=== PATIENT | male | born 1930 | race Caucasian/White ===

== ENCOUNTER 2019-03-27 15:21 | Observation (INO) | payer OTHER ==
[~2019-03-27] VITALS: Ht 167.6 cm; Wt 61.0 kg
[2019-03-27] MEDS: CLINDAMYCIN 600MG / 50ML 50 ML IV SCH
[2019-03-27] MEDS ORDERED: TETANUS/DIPHTHERIA TOX ADULT 0.5 ML SYR IM ONE (16:45)
--- NOTE | 2019-03-27 17:42 | Diagnostic Imaging Report ---
HAND 3+ VIEWS RIGHT - 3 views HISTORY: Pain COMPARISON: None available. FINDINGS: Bones: No acute displaced fracture. Osseous alignment is within normal limits. Joints: Advanced degenerative changes and chondrocalcinosis involving the joints of the fingers and wrist, worst at the first carpometacarpal joint where there is joint space obliteration with remodeling. Soft tissues: Punctate metallic densities along the dorsal lateral aspect of the fifth metacarpal head with associated soft tissue calcifications. IMPRESSION: 1. No acute fracture. 2. Advanced degenerative changes in the right hand and wrist, worst at the first carpometacarpal joint, there is likely a component of CPPD arthropathy. Signed by: Mynor Marie MD on 03/27/2019 5:39 PM
--- NOTE | 2019-03-27 17:49 | Diagnostic Imaging Report ---
HIP RIGHT 2-3 VW (+/- PELVIS) - 3 views HISTORY: Pain COMPARISON: None available. FINDINGS: Bones: No acute displaced fracture. Osseous alignment is within normal limits. Joints: Disc height loss and osteophytes with left convex curvature of the included lower lumbar spine. Hip and sacroiliac joint spaces are preserved with mild osteophytes. Chondrocalcinosis. Soft tissues: Vascular calcifications. IMPRESSION: No acute radiographic abnormality. Advanced degenerative changes in the lower lumbar spine. Mild degenerative changes in the sacroiliac joints and hips. Signed by: Mynor Marie MD on 03/27/2019 5:46 PM
[2019-03-27] MEDS ORDERED: ONDANSETRON HCL INJ 2MG/ML 2ML 2 MG/ML VIAL IV PRN (18:15)
--- NOTE | 2019-03-27 18:30 | NUR ---
DR QUINONES AT PT BEDSIDE
[2019-03-27] MEDS: SODIUM CHLORIDE 0.9% 1000ML 1,000 ML IV SCH (19:00)
--- OUTSIDE RECORDS SUMMARY | 2019-03-27 19:01 | XMS REPORT ---
Author [facility] Address Unknown Phone Unavailable Care Team Providers Care Money Room Supervisor Name Role Phone Paul MATOS Unavailable Unavailable Problems This patient has no known problems. Allergies, Adverse Reactions, Alerts This patient has no known allergies or adverse reactions. Medications This patient has no known medications. Results Test Description Test Time Test Comments Text Results Atomic Results Result Comments HIP RIGHT 2-3 VW (+/- PELVIS) 2019-03-27 17:39:00 [place] [address] Patient Name: GLENIS RAYA MR #: [id number] : 1930 Age/Sex: 88/M Req #: [id number] Adm Physician: Ordered by: JULIETA RAMIREZ SYSTEM ADMINISTRATION MANAGER Report #: [id number] Location: ER Room/Bed: Procedure: [id number] DX/HIP RIGHT 2-3 VW (+/- PELVIS) Exam Date: Exam Time: REPORT STATUS: Signed HIP RIGHT 2-3 VW (+/- PELVIS) - 3 views HISTORY: Pain COMPARISON: None available. FINDINGS: Bones: No acute displaced fracture. Osseous alignment is within normal limits. Joints: Disc height loss and osteophytes with left convex curvature of the included lower lumbar spine. Hip and sacroiliac joint spaces are preserved with mild osteophytes. Chondrocalcinosis. Soft tissues: Vascular calcifications. IMPRESSION: No acute radiographic abnormality. Advanced degenerative changes in the lower lumbar spine. Mild degenerative changes in the sacroiliac joints and hips. Signed by: Mynor Marie MD on 03/27/2019 5:46 PM Dictated By: MYNOR MARIE DO 45 Transcribed By: CELIA on 03/27/191745 COPY TO: JULIETA RAMIREZ NP HAND 3+ VIEWS RIGHT 2019-03-27 17:33:00 [place] [address] Patient Name: GLENIS RAYA MR #: [id number] : 1930 Age/Sex: 88/M Req #: [id number] Adm Physician: Ordered by: JULIETA RAMIREZ NP Report #: [id number] Location: ER Room/Bed: Procedure: [id number] DX/HAND 3+ VIEWS RIGHT Exam Date: 03/27/19 Exam Time: 1700 REPORT STATUS: Signed HAND 3+ VIEWS RIGHT - 3 views HISTORY: Pain COMPARISON: None available. FINDINGS: Bones: No acute displaced fracture. Osseous alignment is within normal limits. Joints: Advanced degenerative changes and chondrocalcinosis involving the joints of the fingers and wrist, worst at the first carpometacarpal joint where there is joint space obliteration with remodeling. Soft tissues: Punctate metallic densities along the dorsal lateral aspect of the fifth metacarpal head with associated soft tissue calcifications. IMPRESSION: 1. No acute fracture. 2. Advanced degenerative changes in the right hand and wrist, worst at the first carpometacarpal joint, there is likely a component of CPPD arthropathy. Signed by: Mynor Marie MD on 03/27/2019 5:39 PM Dictated By: MYNOR MARIE DO 1739 Transcribed By: CELIA on 03/27/19 173 COPY TO: JULIETA RAMIREZ NP
[2019-03-27 20:21] LABS: BASOPHILS # (AUTO) 0.1 (0.0-0.1); BASOPHILS % 0.5 % (0.0-1.0); EOSINOPHILS % 0.1 % (0.0-6.0); HEMATOCRIT 44.9 % (38.2-49.6); HEMOGLOBIN 15.9 g/dL (14.0-18.0); LYMPHOCYTES # (AUTO) 1.2 (1.0-3.2); MEAN CORPUSCULAR HEMOGLOBIN 34.4 pg (28-32); MEAN CORPUSCULAR HGB CONC 35.4 g/dL (31-35); MEAN CORPUSCULAR VOLUME 97.2 fL (81-99); MONOCYTES # (AUTO) 0.9 (0.2-0.8); MONOCYTES % 8.3 % (4.4-11.3); NEUTROPHILS # (AUTO) 8.6 (2.1-6.9); NEUTROPHILS % 79.7 % (38.7-80.0); PLATELET COUNT 158 x10e3/uL (140-360); RED BLOOD COUNT 4.62 x10e6/uL (4.3-5.7)
[2019-03-27 20:27] LABS: INR 0.97; PROTHROMBIN TIME 13.4 seconds (11.9-14.5)
[2019-03-27 20:37] LABS: ALANINE AMINOTRANSFERASE 22 IU/L (0-55); ALBUMIN 3.7 g/dL (3.5-5.0); ALBUMIN/GLOBULIN RATIO 1.2 (0.8-2.0); ALKALINE PHOSPHATASE 86 IU/L (40-150); ANION GAP 13.1 mmol/L (8-16); BLOOD UREA NITROGEN 24 mg/dL (7-26); BUN/CREATININE RATIO 26 (6-25); CALCIUM 9.5 mg/dL (8.4-10.2); CARBON DIOXIDE 26 mmol/L (22-29); CHLORIDE 101 mmol/L (98-107); CREATININE, SERUM 0.92 mg/dL (0.72-1.25); EST GLOMERULAR FILTRATION RATE > 60 ML/MIN (60-); GLUCOSE 110 mg/dL (74-118); POTASSIUM 4.1 mmol/L (3.5-5.1); SODIUM 136 mmol/L (136-145)
[2019-03-27] MEDS: MORPHINE SULFATE INJ 4 MG/ML INJ 1ML IV PRN (21:02)
--- NOTE | 2019-03-27 22:09 | NUR ---
Patient arrived via stretcher from ER with family at side. Oriented to environment and calling. Instructed to call for on the onset of pain or SOB. Call light within reach. Will continue to monitor.
[2019-03-27] MEDS ORDERED: SYNTHROID125 MCG PO (22:31)
[2019-03-27 22:34] VITALS: BP 150/70
[2019-03-28] VITALS: BP 148/66
[2019-03-28] MEDS: MORPHINE SULFATE INJ 4 MG/ML INJ 1ML IV PRN (01:55)
[2019-03-28] MEDS: SODIUM CHLORIDE 0.9% 1000ML 1,000 ML IV SCH (02:08)
[2019-03-28 04:00] VITALS: BP 129/61
--- NOTE | 2019-03-28 06:00 | NUR ---
Resting in bed with rt arm/hand elevated on pillow. Call light within reach. No issues or concerns.Will continue to monitor.
[2019-03-28] MEDS: CLINDAMYCIN 600MG / 50ML 50 ML IV SCH ×2 (06:01)
--- NOTE | 2019-03-28 06:44 | Diagnostic Imaging Report ---
EXAMINATION: CHEST SINGLE (PORTABLE) COMPARISON: None INDICATION: ^pre-op for surgery ^Y DISCUSSION: Frontal view of the chest obtained at 0547 hours. HEART AND MEDIASTINUM: The cardiomediastinal silhouette is unremarkable. LINES: None. LUNGS: The lungs are well inflated and clear. No pneumonia or pulmonary edema. PLEURA: No pleural effusion or pneumothorax. BONES AND SOFT TISSUES: Severe degenerative changes of the right shoulder. Mild changes of the left shoulder. The soft tissues are normal. IMPRESSION: No acute cardiopulmonary disease. Signed by: Dr. Bonifacio Hansen MD on 03/28/2019 6:41 AM
[2019-03-28 07:45] VITALS: BP 139/79
[2019-03-28] MEDS ORDERED: MUPIROCIN 2% OINT 22 GM TUBE ONE (08:03)
[2019-03-28] MEDS ORDERED: BUPIVACAINE HCL 0.5% INJ 30 ML VIAL INJ ONE (08:03)
[2019-03-28] MEDS ORDERED: BACITRACIN 50,000 UNIT VIAL ONE (08:03)
[2019-03-28 08:25] VITALS: BP 139/79
[2019-03-28] MEDS ORDERED: LIDOCAINE 1% W/EPINEPHRINE 20 ML VIAL ONE (08:37)
[2019-03-28] MEDS ORDERED: MUPIROCIN 2% OINT 22 GM TUBE TOP SCH (09:00)
--- NOTE | 2019-03-28 10:40 | NUR ---
patient alert and oriented, with family at bedside. call callejas within reach and bed in lowest position.
[2019-03-28 12:14] VITALS: BP 133/74
[2019-03-28] MEDS ORDERED: KEFLEX500 MG PO (13:11)
--- NOTE | 2019-03-28 13:45 | NUR ---
patient alert and oriented with family at the bedside. discharge instructions given at this time, all verbalized understanding. IV discontinued, catheter in tact and dressing applied. patient to be wheeled to personal auto for family to drive home.
--- NOTE | 2019-03-28 14:03 | Consultation ---
DATE OF CONSULTATION: 03/28/2019 REQUESTING PHYSICIAN: Dr. Romeo Patel. 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 He sustained an injury to the dorsal aspect of the right hand and was taken to the emergency room. The emergency room noted that there was a complete degloving injury of the right hand between the MPJs and the wrist. There is exposed tendon of the right index and long fingers. The consultation is now requested of optimal management of degloving injury. PAST MEDICAL HISTORY: Notable for hypothyroidism. PAST SURGICAL HISTORY: Noncontributory. ALLERGIES: HE IS NOT ALLERGIC TO ANY MEDICATIONS. PHYSICAL EXAMINATION: The vital signs are stable and the patient is afebrile, in mild acute distress secondary to pain from the injury. The pertinent physical exam shows a full-thickness wound of the dorsum of the right hand extending from the distal wrist crease to the MPJs of the index through little fingers. The skin is bunched up in several locations and appears to be partially ischemic. There is exposed tendon to the index and long fingers, however, the extensor tendon function appears to be intact with no extension lag. There is a significant amount of debris in the wound. There is no active bleeding of the wound. IMAGING DATA: Radiographs show no acute bony abnormality. There are chronic degenerative changes, however, scattered throughout the carpus and the hand. IMPRESSION: Degloving injury of right hand with exposed extensor tendon. PLAN: The patient will be taken to the OR urgently. He will have cleansing of the wound and debridement of all devitalized and partially devitalized structures. I doubt that there will be sufficient skin to close the wound primarily and the patient will most likely need skin grafting. These findings and risks, alternatives, and benefits to treatment were discussed with the patient in detail. Thank you for allowing me to participate in the care of your patient. MD ENDY Newberry/LAURA /[id number]
--- NOTE | 2019-03-28 14:19 | Operative Report ---
DATE OF PROCEDURE: 03/28/2019 SURGEON: Bhanu Girard MD PREOPERATIVE DIAGNOSIS: Open wound of right hand with foreign body. POSTOPERATIVE DIAGNOSIS: Open wound of right hand with foreign body. PROCEDURE: 1. Debridement of subcutaneous and extensor tendon. 2. Flap closure of right hand dorsum 12 sq cm. 3. Full-thickness skin grafting, dorsum right hand. ANESTHESIA: General. HISTORY: The patient is an 88-year-old [id number] male with a dirty open wound of the dorsal aspect of the right hand. There is devitalized tissue and the patient needs to have removal of foreign material, debridement of devitalized tissues, and closure of the wound. The risks, benefits, and alternatives of treatment were discussed with the patient and he is prepared to undergo the procedure as outlined. PROCEDURE IN DETAIL: The patient was marked preoperatively in the holding area. He was brought to the operating theater and after the induction of adequate general anesthesia, he was prepped and draped in a supine position. A time-out was performed. The procedure was begun by copiously irrigating the wound with antibiotic-containing solution to try to remove all the particulate matter. Once all of the foreign body particulate matter had been removed, visualization of the wound showed there to be disruption of the superficial most fibers of the extensor tendon mechanism to the right index finger. This tissue was sharply excised and there was no need for a tendon repair. The skin and subcutaneous tissue were then brought out to length and all of the devitalized and partially ischemic areas were sharply excised. The remaining skin and subcutaneous tissue were then closed anatomically with 5-0 chromic in an interrupted fashion. Once the repair of the dorsum of the hand had been performed, it measured approximately 10-12 sq cm. However, there was a 3-4 sq cm area of exposed tendon on the dorsum of the hand, which was not able to be covered primarily. For this reason, the full-thickness skin graft was planned. The right forearm had a template made of the size of the skin graft needed. The skin of the forearm was then infiltrated with 1% Xylocaine with epinephrine and the incision was made through the skin and subcutaneous tissues. Bleeding was controlled using the electrocautery. The graft was harvested and placed in a saline-soaked gauze pad. The wound bed was made hemostatic using the electrocautery and closed with a 5-0 chromic suture in an interrupted fashion. The full-thickness skin graft was then sharply defatted down to the deep dermal level. The graft was then placed on the wound defect and secured in place with 5-0 chromic sutures in an interrupted fashion. At the completion of the procedure, Bactroban ointment, Xeroform gauze, and a sterile bulking dressing are applied over the dorsum of the right hand. The right forearm donor site was dressed with Bactroban ointment and a sterile dressing. The estimated blood loss for the procedure was 10-15 mL. The patient was returned to recovery room in satisfactory condition. MD ENDY Newberry/LAURA /[id number]
[2019-03-28] MEDS ORDERED: FENTANYL CITRATE/PF 100MCG/2 ML INJ ONE (14:26)
[2019-03-28] MEDS ORDERED: ACETAMINOPHEN 1000 MG/100 ML IV ONE (14:57)
[2019-03-28] MEDS ORDERED: ONDANSETRON HCL INJ 2MG/ML 2ML 2 MG/ML VIAL ONE (14:57)
[2019-03-28] MEDS ORDERED: LIDOCAINE HCL 2% LOCAL INJ 5 ML SDV VIAL INJ ONE (14:57)
[2019-03-28] MEDS ORDERED: SEVOFLURANE INHAL SOLN 250 ML PEN BTL ONE (14:57)
[2019-03-28] MEDS ORDERED: DEXAMETHASONE SOD PHOS INJ 4 MG/ML VIAL ONE (14:57)
[2019-03-28] MEDS ORDERED: PROPOFOL IV EMULSION 10 MG/ML 20 ML VIAL ONE (14:57)
[2019-03-29] MEDS ORDERED: LEVOTHYROXINE SODIUM 125 MCG TAB PO SCH (06:30)
== END 2019-03-28 13:45 | disposition home or self-care (01) ==
LOC: ER 15:21 → ERHOLD 18:10 → IMCU 22:06
PROVIDERS: ADMIT Internal Medicine; ATTEND Internal Medicine
DX: S61.421A Laceration with foreign body of right hand, initial encounter (principal); S50.811A Abrasion of right forearm, initial encounter; S60.812A Abrasion of left wrist, initial encounter; W10.8XXA Fall (on) (from) other stairs and steps, initial encounter; Y93.01 Activity, walking, marching and hiking; Y92.018 Other place in single-family (private) house as the place of occurrence of the external cause; E03.9 Hypothyroidism, unspecified; F41.9 Anxiety disorder, unspecified; M25.551 Pain in right hip
CPT/HCPCS: 11043; 15240; 36415; 71045; 73130; 73502; 80053; 85025; 85610; 85730; 90471; 90714; 93005; 99284; G0378 ×2; J0131; J1100; J2001; J2270 ×2; J2405; J2704; J7030 ×2; J3010